=== PATIENT | female | born 1960 | race Caucasian/White ===

== ENCOUNTER 2019-04-23 13:26 | Emergency (ER) | payer OTHER ==
[~2019-04-23] VITALS: Ht 160 cm; Wt 66.3 kg
[~2019-04-23 13:26] MED LIST: BACTDS PO; CEPH-443 PO; HYDR-4011 PO; NAPR-688 PO; SULF1TAB31 PO
[2019-04-23 13:31] VITALS: BP 115/68; PULSE 78; RESP 16; Ht 160 cm; Wt 66.3 kg
== END 2019-04-23 16:20 | disposition home or self-care (01) ==
LOC: FTE 13:26
DX: L02.811 Cutaneous abscess of head [any part, except face] (principal); L02.411 Cutaneous abscess of right axilla
CPT/HCPCS: 99283